=== PATIENT | male | born 1995 | race Caucasian/White ===

== ENCOUNTER 2018-09-13 11:29 | Emergency (ER) | payer BC, OTHER ==
[~2018-09-13 11:29] MED LIST: CITA-145 PO; OXYC-865 PO; PROM-110 PO
[2018-09-13] MEDS ORDERED: FAMOTIDINE(*) 20MG/50ML PREMIX 50 ML IVPB ONE (11:35)
[2018-09-13] MEDS ORDERED: diphenhydrAMINE 50 MG/ML VIAL IVP ONE (11:35)
[2018-09-13] MEDS ORDERED: methylPREDNIS SUCC 125 MG/2ML IVP ONE (11:35)
--- NOTE | 2018-09-13 11:38 | ER Report ---
History and Physical Time Seen By MD: 11:36 Hx. of Stated Complaint: PATIENT HAS HAD SWOLLEN AND PAINFUL TONSILS FOR THE LAST WEEK. HE HAS BEEN TREATED WITH STERIODS AND ANTIBIOTICS. HPI/ROS CHIEF COMPLAINT: Tonsillar complaint HISTORY OF PRESENT ILLNESS: 23-year-old male has had 4 days of worsening sore throats went to a primary care doc noted he had bilateral tonsillar hyperplasia hypertrophy and tonsillar exudative changes was started on a prednisone without an antibiotic return yesterday started [facility] yesterday comes back in today with significantly worse symptoms patient states having difficulty swallowing breathing without issue patient has pain fever chills and sweats patient denies any cough at this time patient has no additional complaints REVIEW OF SYSTEMS: Respiratory: No cough, no dyspnea. Cardiovascular: No chest pain, no palpitations. Gastrointestinal: No vomiting, no abdominal pain. Musculoskeletal: No back pain. Remainder of the 14 system rev: Yes Allergies: Coded Allergies: escitalopram (Verified Allergy, Intermediate, DIARRHEA, 09/26/16) Home Meds Active Scripts Promethazine Hcl (PROMETHAZINE HCL) 25 Mg Tablet, 25 MG PO Q4H PRN for NAUSEA/VOMITING, #12 TAB Prov:EZIO MILLAN DO 09/26/16 Oxycodone Hcl/Acetaminophen (PERCOCET 5-325 MG TABLET) 1 Each Tablet, 1 EACH PO Q4H PRN for PAIN, #12 Prov:EZIO MILLAN DO 09/26/16 Reported Medications Citalopram Hydrobromide (CITALOPRAM HBR) 20 Mg Tablet, 20 MG PO QDAY, #5 TAB 09/26/16 Reviewed Nurses Notes: Yes Old Medical Records Reviewed: Yes Hx Substance Use Disorder: No Hx Alcohol Use: Yes (rare) Constitutional Vital Sign - Last 24 Hours 09/13/18 11:32 Temp 100.1 Pulse 104 Resp 20 B/P (MAP) 142/85 Pulse Ox 93 O2 Delivery Room Air Physical Exam General Appearance: The patient is alert, has no immediate need for airway protection and no current signs of toxicity. [ ] Eyes: Pupils equal and round no injection. Respiratory: Chest is non tender, lungs are clear to auscultation. Cardiac: regular rate and rhythm [ ] Gastrointestinal: Abdomen is soft and non tender, no masses, bowel sounds normal. Musculoskeletal: Neck: Neck is supple and non tender. Extremities have full range of motion and are non tender. Skin: No rashes or lesions. HEENT examination patient is significantly enlarged bilateral tonsillar hyperplasia hypertrophy tonsils are basically kissing no uvular deviation noted with the usual uvular edema and some redness and erythema some exudative changes submandibular lymphadenopathy DIFFERENTIAL DIAGNOSIS: After history and physical exam differential diagnosis was considered for bilateral tonsillar hyperplasia hypertrophy with tonsillitis Medical Decision Making Data Points Result Diagram: 09/13/18 1150 09/13/18 1150 Laboratory Hematology Test 09/13/18 11:50 Red Blood Count 5.86 M/uL (4.00-5.60) Mean Corpuscular Volume 83.5 fL (80.0-96.0) Mean Corpuscular Hemoglobin 28.0 pg (26.0-33.0) Mean Corpuscular Hemoglobin Concent 33.5 g/dL (32.0-36.0) Red Cell Distribution Width 13.8 % (11.5-14.5) Mean Platelet Volume 8.1 fL (7.2-11.1) Neutrophils (%) (Auto) 39.9 % (39.4-72.5) Lymphocytes (%) (Auto) 47.0 % (17.6-49.6) Monocytes (%) (Auto) 12.5 % (4.1-12.4) Eosinophils (%) (Auto) 0.1 % (0.4-6.7) Basophils (%) (Auto) 0.5 % (0.3-1.4) Nucleated RBC Relative Count (auto) 0.1 /100WBC Neutrophils # (Auto) 6.5 K/uL (2.0-7.4) Lymphocytes # (Auto) 7.6 K/uL (1.3-3.6) Monocytes # (Auto) 2.0 K/uL (0.3-1.0) Eosinophils # (Auto) 0.0 K/uL (0.0-0.5) Basophils # (Auto) 0.1 K/uL (0.0-0.1) Nucleated RBC Absolute Count (auto) 0.02 K/uL Sodium Level 139 mmol/L (137-145) Potassium Level 3.6 mmol/L (3.5-5.0) Chloride Level 102 mmol/L (98-107) Carbon Dioxide Level 25 mmol/L (22-30) Blood Urea Nitrogen 10 mg/dl (9-21) Creatinine 0.90 mg/dl (0.66-1.25) Glomerular Filtration Rate Calc > 60.0 Random Glucose 107 mg/dl (75-110) Calcium Level 9.6 mg/dl (8.4-10.2) Total Bilirubin 1.5 mg/dl (0.2-1.3) Aspartate Amino Transf (AST/SGOT) 163 U/L (0-35) Alanine Aminotransferase (ALT/SGPT) 455 U/L (0-56) Alkaline Phosphatase 143 U/L (0-126) Total Protein 7.3 g/dl (6.3-8.2) Albumin 4.3 g/dl (3.5-5.0) Monoscreen Positive (NEGATIVE) Chemistry Test 09/13/18 11:50 White Blood Count 16.3 k/uL (4.5-11.0) Red Blood Count 5.86 M/uL (4.00-5.60) Hemoglobin 16.4 g/dL (14.0-18.0) Hematocrit 49.0 % (42.0-52.0) Mean Corpuscular Volume 83.5 fL (80.0-96.0) Mean Corpuscular Hemoglobin 28.0 pg (26.0-33.0) Mean Corpuscular Hemoglobin Concent 33.5 g/dL (32.0-36.0) Red Cell Distribution Width 13.8 % (11.5-14.5) Platelet Count 194 K/uL (150-450) Mean Platelet Volume 8.1 fL (7.2-11.1) Neutrophils (%) (Auto) 39.9 % (39.4-72.5) Lymphocytes (%) (Auto) 47.0 % (17.6-49.6) Monocytes (%) (Auto) 12.5 % (4.1-12.4) Eosinophils (%) (Auto) 0.1 % (0.4-6.7) Basophils (%) (Auto) 0.5 % (0.3-1.4) Nucleated RBC Relative Count (auto) 0.1 /100WBC Neutrophils # (Auto) 6.5 K/uL (2.0-7.4) Lymphocytes # (Auto) 7.6 K/uL (1.3-3.6) Monocytes # (Auto) 2.0 K/uL (0.3-1.0) Eosinophils # (Auto) 0.0 K/uL (0.0-0.5) Basophils # (Auto) 0.1 K/uL (0.0-0.1) Nucleated RBC Absolute Count (auto) 0.02 K/uL Glomerular Filtration Rate Calc > 60.0 Calcium Level 9.6 mg/dl (8.4-10.2) Total Bilirubin 1.5 mg/dl (0.2-1.3) Aspartate Amino Transf (AST/SGOT) 163 U/L (0-35) Alanine Aminotransferase (ALT/SGPT) 455 U/L (0-56) Alkaline Phosphatase 143 U/L (0-126) Total Protein 7.3 g/dl (6.3-8.2) Albumin 4.3 g/dl (3.5-5.0) Monoscreen Positive (NEGATIVE) ED Course/Re-evaluation ED Course 80 conical course medical decision making patient seen and evaluated that cyber ENT patient be discharge diagnosis tonsillitis of surgery in 2 days started him on by mouth prednisone discontinue antibiotics return if symptoms worsen Decision to Disposition Date: Sep 13, 2018 Decision to Disposition Time: 14:13 Depart Departure Latest Vital Signs Vital Signs Date Time Temp Pulse Resp B/P (MAP) Pulse Ox O2 Delivery O2 Flow Rate FiO2 09/13/18 11:32 100.1 104 20 142/85 93 Room Air Impression: Primary Impression: Tonsillitis Condition: Improved Disposition: HOME OR SELF-CARE Referrals: YUNIOR LÓPEZ JR, MD 2 Days New Scripts Prednisone (PREDNISONE) 20 Mg Tablet 60 MG PO QDAY, #12 0 Refills Prov: SCOT DE OLIVEIRA MD 09/13/18 Patient Instructions: Tonsillitis (DC) Additional Instructions: Return in [address] López for surgery return if symptoms worsen SCOT DE OLIVEIRA MD Sep 13, 2018 11:38
[2018-09-13 12:04] LABS: PLATELET COUNT, AUTOMATED 194 K/uL (150-450)
[2018-09-13 14:00] VITALS: BP 130/79
[2018-09-13] MEDS ORDERED: PRED20TA6 PO (14:14)
--- NOTE | 2018-09-13 16:47 | CONSULTATION ---
EVENT DATE: September 13, 2018 REQUESTING PHYSICIAN Jaycob Sarmiento MD, in the Emergency Department REASON FOR CONSULTATION 1. Tonsillar hypertrophy. 2. Dysphagia. HISTORY OF PRESENT ILLNESS This is a 23-year-old male who complains of a four-day history of worsening sore throat and inability to tolerate food and drink. He was initially seen at [facility] where a rapid strep was performed and negative. He was empirically treated with steroids for the past two days without improvement. The patient reported to the Emergency Department today unable to tolerate much by mouth. He denies any difficulty breathing. The patient denies a history of recurrent strep throat. In the Emergency Department, the patient was noted to have a positive mono spot and elevated liver function tests. PAST MEDICAL HISTORY Notable for depression. PAST SURGICAL HISTORY None. FAMILY HISTORY Noncontributory. REVIEW OF SYSTEMS As above. MEDICATIONS Citalopram. ALLERGIES ESCITALOPRAM. SOCIAL HISTORY He is a student. He denies tobacco. He drinks alcohol on occasion. PHYSICAL EXAMINATION VITAL SIGNS: Temperature 100.1 Fahrenheit, pulse 104, respiratory rate 20, blood pressure 142/85, oxygen saturation 93% on room air. GENERAL: Well nourished, well developed. Hot potato voice. Tolerating oral secretions. HEAD AND FACE: Normocephalic, atraumatic. No gross lesions or scars. EYES: Extraocular movements intact. Sclerae white. Conjunctivae pink. EARS: External ears unremarkable. NOSE: External nose unremarkable. ORAL CAVITY AND PHARYNX: No trismus. Tonsils 4+. No exudate. NECK: Soft, supple. Midline trachea. No palpable lymphadenopathy. ASSESSMENT 1. Mononucleosis. 2. Tonsillar hypertrophy. 3. Dysphagia. PLAN The patient was treated with high-dose steroids in the Emergency Department. He is able to drink, but barely. He has been on oral steroids for the past two days without symptomatic improvement. The patient's father is by the bedside. We discussed the option of tonsillectomy. Risks of bleeding, infection, and those associated with anesthesia were discussed. The plan is discussed with the emergency department attending. LIZ
== END 2018-09-13 14:29 | disposition home or self-care (01) ==
LOC: ER 11:29
DX: J35.1 Hypertrophy of tonsils (principal); B27.90 Infectious mononucleosis, unspecified without complication
CPT/HCPCS: 85025; 86308; 96374; 96375; 99284; J1200; J2930; J3490; 82040; 82247; 82310; 82374; 82435; 82565; 82947; 84075; 84132; 84155; 84295; 84450; 84460; 84520

== ENCOUNTER 2018-09-15 00:28 | Day surgery (SDC) | payer BC ==
[~2018-09-15] VITALS: Ht 188 cm; Wt 79.4 kg
[~2018-09-15 00:28] MED LIST changes: +PRED20TA6 PO
[2018-09-15 08:10] VITALS: BP 121/75
[2018-09-15] MEDS ORDERED: MIDAZOLAM 2 MG/2 ML VIAL IVP PRN (08:25)
[2018-09-15] MEDS ORDERED: FAMOTIDINE 20 MG TAB PO ONE (08:25)
[2018-09-15] MEDS ORDERED: LIDOCAINE/SOD BICARB 8.4% SYR ID ONE (08:25)
[2018-09-15] MEDS ORDERED: NORMOSOL R SOLN(*) 1000 ML BAG 1,000 ML IV PRN (08:25)
[2018-09-15] MEDS ORDERED: ceFAZolin(*) 2GM/D5W 50ML 50 ML IVPB ONE (08:25)
[2018-09-15] MEDS ORDERED: HYDROmorphone HCL 2 MG/ML SDV ONE (09:08)
[2018-09-15] MEDS ORDERED: ONDANSETRON 4 MG/2 ML VIAL ONE ×2 (09:24→10:36)
[2018-09-15] MEDS ORDERED: DEXAMETHASONE SOD PHOS 10MG/ML ONE (09:24)
[2018-09-15] MEDS ORDERED: PROPOFOL EMUL(*) 10MG/ML 20 ML 40 ML ONE (09:24)
[2018-09-15] MEDS ORDERED: AMOX500T10 PO (10:10)
[2018-09-15] MEDS ORDERED: LIDO15SO2 PO (10:12)
[2018-09-15] MEDS ORDERED: OXYC-865 PO (10:12)
[2018-09-15] MEDS ORDERED: ONDA4TAB9 PO (10:13)
[2018-09-15 10:30] VITALS: BP 116/80
[2018-09-15 10:45] VITALS: BP 115/68
[2018-09-15 11:15] VITALS: BP 111/68
[2018-09-15 11:30] VITALS: BP 119/67
[2018-09-15 11:31] VITALS: BP 119/82
--- NOTE | 2018-09-15 14:23 | OPERATIVE REPORT 1 ---
EVENT DATE: September 15, 2018 SURGEON: Corona Rick MD ANESTHESIOLOGIST: Hero Chaudhry MD ANESTHESIA: LMA. PROCEDURE PERFORMED Tonsillectomy. PREOPERATIVE DIAGNOSES 1. Tonsillar hypertrophy. 2. Mononucleosis. 3. Dysphagia. POSTOPERATIVE DIAGNOSES 1. Tonsillar hypertrophy. 2. Mononucleosis. 3. Dysphagia. INDICATIONS Please refer to the preoperative note. DESCRIPTION OF PROCEDURE The patient was positively identified in the preoperative area. He was accompanied there by his parents. Risks again explained included, but were not limited to bleeding, infection, and those associated with anesthesia. The patient and his parents acknowledged understanding of those risks. He was then brought back to the operative suite and laid supine on the operative table, and anesthesia was administered. Once asleep, the patient was positioned and then prepped and draped in the usual sterile fashion. A McIvor mouth gag was placed in the patient's oral cavity. A red rubber catheter was placed through the right nostril and utilized to suspend the soft palate. The patient was noted to have 4+ tonsils. The right tonsil was grasped with a curved Allis forceps and carefully dissected from the lateral pharyngeal wall and fulgurated with electrocautery. In a similar fashion, the contralateral tonsil was removed. Hemostasis was further obtained with suction Bovie electrocautery. The patient was then turned to Anesthesia for emergence. Estimated blood loss 25 mL. No complications. MTDD
== END 2018-09-15 10:30 | disposition home or self-care (01) ==
LOC: OR 00:28
PROVIDERS: ATTEND Otolaryngology
DX: J35.1 Hypertrophy of tonsils (principal); B27.90 Infectious mononucleosis, unspecified without complication; R13.10 Dysphagia, unspecified
CPT/HCPCS: 42826; 88304; J1100; J1170; J2250; J2405; J2704; J0690

== ENCOUNTER 2018-09-23 05:58 | Emergency (ER) | payer BC ==
[~2018-09-23 05:58] MED LIST changes: +AMOX500T10 PO; +LIDO15SO2 PO; +ONDA4TAB9 PO
--- NOTE | 2018-09-23 06:05 | ER Report ---
History and Physical Time Seen By MD: 06:04 (DAVID CORNEJO MD) HPI/ROS CHIEF COMPLAINT: post-tonsillectomy bleeding HISTORY OF PRESENT ILLNESS: This is a 23 year old male. He had a tonsillectomy on 09/15/[address] Rick here at [facility]. He started having bleeding early this morning. Spitting up a significanta amount of blood. Estimate about 2 ounces over the last 20 minutes. Awoke with the bleeding. Had tried using icewater to slow the bleeding, but continuing despite this. Pain controlled. No trouble with breathing. No other problems since his surgery. (DAVID CORNEJO MD) Allergies: Coded Allergies: escitalopram (Verified Allergy, Intermediate, DIARRHEA, 09/23/18) Home Meds Reported Medications Lamotrigine (LAMOTRIGINE) 150 Mg Tablet, 150 MG PO QDAY 09/23/18 Oxycodone Hcl/Acetaminophen (PERCOCET 5-325 MG TABLET) 1 Each Tablet, 1-2 EACH PO Q6H PRN for PAIN, #40 TAB 09/15/18 Discontinued Reported Medications Ondansetron 4 Mg Odt (ONDANSETRON 4 MG ODT) 4 Mg Tab.rapdis, 4 MG PO Q6H for Nausea, #10 TAB 09/15/18 Lidocaine HCl VISCOUS 2% (Lidocaine Viscous) 2 % Solution, 15 ML PO Q2H PRN for PAIN, #500 ML 09/15/18 Amoxicillin 500 Mg Tab (AMOXICILLIN 500 MG TAB) 500 Mg Tablet, 1 TAB PO Q8H for 7 Days, #21 TAB 09/15/18 Reviewed Nurses Notes: Yes (DAVID CORNEJO MD) Hx Smoking: No Smoking Status: Never Smoker Hx Substance Use Disorder: No Hx Alcohol Use: Yes (rare) (DAVID CORNEJO MD) Constitutional Vital Sign - Last 24 Hours 09/23/18 09/23/18 09/23/18 09/23/18 06:00 06:02 06:13 06:28 Temp 99.7 Pulse 78 82 76 Resp 16 B/P (MAP) 135/77 (96) 135/77 Pulse Ox 92 93 95 O2 Delivery Room Air 09/23/18 09/23/18 09/23/18 09/23/18 06:38 06:43 06:45 07:00 Pulse 78 B/P (MAP) 106/58 (74) 113/67 (82) 119/69 (86) Pulse Ox 96 09/23/18 09/23/18 09/23/18 09/23/18 07:13 07:15 07:18 07:18 Pulse 109 75 Resp 18 B/P (MAP) 126/76 (93) Pulse Ox 95 97 O2 Delivery Room Air 09/23/18 09/23/18 09/23/18 09/23/18 07:25 07:30 07:43 07:45 Pulse 80 72 Resp 18 B/P (MAP) 118/75 (89) 116/69 (85) Pulse Ox 95 09/23/18 09/23/18 09/23/18 09/23/18 07:50 08:00 08:15 08:20 Pulse 74 71 B/P (MAP) 105/66 (79) 114/62 (79) Pulse Ox 92 91 09/23/18 09/23/18 09/23/18 09/23/18 08:30 08:45 09:00 09:15 B/P (MAP) 116/69 (85) 115/65 (82) 112/71 (85) 110/71 (84) (GILMAR ARANDA MD) Physical Exam General: Alert, no acute distress, but is anxious. ENT: Posterior oropharynx evaluated using head lamp and tongue depressor. Has a moderate sized clot in the patient's right tonsillar fossae with some blood oozing from the base of this, which seems to increase slightly with movement of the tongue against the clot. The patient's left side is doing well without any noted bleeding. Neck: Supple, non-tender. Cardiovascular: Normal cap refill of the skin. (DAVID CORNEJO MD) Medical Decision Making Data Points Result Diagram: 09/23/18 06 Laboratory Hematology Test 09/23/18 06:25 Red Blood Count 5.36 M/uL (4.00-5.60) Mean Corpuscular Volume 80.8 fL (80.0-96.0) Mean Corpuscular Hemoglobin 28.2 pg (26.0-33.0) Mean Corpuscular Hemoglobin Concent 34.9 g/dL (32.0-36.0) Red Cell Distribution Width 13.4 % (11.5-14.5) Mean Platelet Volume 7.6 fL (7.2-11.1) Neutrophils (%) (Auto) 55.8 % (39.4-72.5) Lymphocytes (%) (Auto) 33.2 % (17.6-49.6) Monocytes (%) (Auto) 9.7 % (4.1-12.4) Eosinophils (%) (Auto) 0.7 % (0.4-6.7) Basophils (%) (Auto) 0.6 % (0.3-1.4) Nucleated RBC Relative Count (auto) 0.2 /100WBC Neutrophils # (Auto) 5.4 K/uL (2.0-7.4) Lymphocytes # (Auto) 3.2 K/uL (1.3-3.6) Monocytes # (Auto) 0.9 K/uL (0.3-1.0) Eosinophils # (Auto) 0.1 K/uL (0.0-0.5) Basophils # (Auto) 0.1 K/uL (0.0-0.1) Nucleated RBC Absolute Count (auto) 0.02 K/uL Prothrombin Time 13.0 seconds (12.0-14.4) Prothromb Time International Ratio 0.98 Activated Partial Thromboplast Time 38 seconds (23-35) Chemistry Test 09/23/18 06:25 White Blood Count 9.7 k/uL (4.5-11.0) Red Blood Count 5.36 M/uL (4.00-5.60) Hemoglobin 15.1 g/dL (14.0-18.0) Hematocrit 43.3 % (42.0-52.0) Mean Corpuscular Volume 80.8 fL (80.0-96.0) Mean Corpuscular Hemoglobin 28.2 pg (26.0-33.0) Mean Corpuscular Hemoglobin Concent 34.9 g/dL (32.0-36.0) Red Cell Distribution Width 13.4 % (11.5-14.5) Platelet Count 265 K/uL (150-450) Mean Platelet Volume 7.6 fL (7.2-11.1) Neutrophils (%) (Auto) 55.8 % (39.4-72.5) Lymphocytes (%) (Auto) 33.2 % (17.6-49.6) Monocytes (%) (Auto) 9.7 % (4.1-12.4) Eosinophils (%) (Auto) 0.7 % (0.4-6.7) Basophils (%) (Auto) 0.6 % (0.3-1.4) Nucleated RBC Relative Count (auto) 0.2 /100WBC Neutrophils # (Auto) 5.4 K/uL (2.0-7.4) Lymphocytes # (Auto) 3.2 K/uL (1.3-3.6) Monocytes # (Auto) 0.9 K/uL (0.3-1.0) Eosinophils # (Auto) 0.1 K/uL (0.0-0.5) Basophils # (Auto) 0.1 K/uL (0.0-0.1) Nucleated RBC Absolute Count (auto) 0.02 K/uL Prothrombin Time 13.0 seconds (12.0-14.4) Prothromb Time International Ratio 0.98 Activated Partial Thromboplast Time 38 seconds (23-35) Coagulation Test 09/23/18 06:25 Prothrombin Time 13.0 seconds Prothromb Time International Ratio 0.98 Activated Partial Thromboplast Time 38 seconds (GILMAR ARANDA MD) ED Course/Re-evaluation Clinical Indication for ER IV: Hydration, IV Access ED Course Patient is within the time frame for a secondary post-tonsillectomy bleed with sloughing of the fibrin clot. Concern given the blood clot and noted oozing of blood from the area. IV started, blood drawn, type and screen ordered. Gave 1000mg of TXA IV and NS and observed. ([facility] [[email or web address]]DAVID MD) ED Course 23-year-old male 1 week postop from tonsillectomy presents to the emergency department with acute postop bleeding that started at 0 300. He received tranexamic acid, IV fluids, and a racemic epi neb. His bleeding stopped after treatment, and he was observed in the emergency department for another 2 hours. No further bleeding at this time. I have spoken with his surgeon, Dr. Rick. He is amenable to the plan of the patient being discharged to home. He will take cold by mouth only for the next 24 hours. If the brisk bleeding starts again, he will return to the emergency department for further intervention and observation. Decision to Disposition Date: Sep 23, 2018 Decision to Disposition Time: 09:04 (GILMAR ARANDA MD) Depart Departure Latest Vital Signs Vital Signs Date Time Temp Pulse Resp B/P (MAP) Pulse Ox O2 Delivery O2 Flow Rate FiO2 09/23/18 09:15 110/71 (84) 09/23/18 08:20 71 91 09/23/18 07:25 18 09/23/18 07:18 Room Air 09/23/18 06:02 99.7 (GILMAR ARANDA MD) Impression: Primary Impression: Post-op bleeding Condition: Improved Disposition: HOME OR SELF-CARE Patient Instructions: Tonsillectomy (DC) Additional Instructions: If your bleeding starts again, call the ER prior to coming back. The number is [phone]. Problem Qualifiers Primary Impression: Post-op bleeding Surgical complication system/body Area: skin Procedure type: non- dermatologic Qualified Codes: L76.22 - Postprocedural hemorrhage of skin and subcutaneous tissue following other procedure DAVID CORNEJO MD Sep 23, 2018 06:05 GILMAR ARANDA MD Sep 23, 2018 09:14
[2018-09-23] MEDS ORDERED: LAMO150T36 PO (06:06)
[2018-09-23] MEDS ORDERED: NS(*) 0.9% 1000 ML BAG 1,000 ML IV ONE (06:15)
[2018-09-23] MEDS ORDERED: TRANEXAMIC AC 1000 MG/10ML SDV 1,000 MG in NS(*) 0.9% 50 ML BAG 50 ML IVPB ONE (06:15)
[2018-09-23 06:36] LABS: PLATELET COUNT, AUTOMATED 265 K/uL (150-450)
[2018-09-23 06:53] LABS: INR 0.98
[2018-09-23] MEDS ORDERED: EPINEPHrine 2.25% 0.5 ML NEB NEB ONE (07:15)
[2018-09-23] MEDS ORDERED: ONDANSETRON 4 MG/2 ML VIAL IVP ONE (07:15)
[2018-09-23 09:15] VITALS: BP 110/71
== END 2018-09-23 09:24 | disposition home or self-care (01) ==
LOC: ER 06:00
DX: L76.22 Postprocedural hemorrhage of skin and subcutaneous tissue following other procedure (principal); Z98.890 Other specified postprocedural states
CPT/HCPCS: 85025; 85610; 85730; 86850; 86900; 86901; 94640; 96365; 96375; 99284; J2405; J7030; J7050; J7699